=== PATIENT | male | born 2000 | race Two or more races ===

== ENCOUNTER 2023-11-11 17:51 | Emergency (ER) | payer MEDICAID, OTHER ==
[~2023-11-11] VITALS: Ht 170.2 cm; Wt 73.0 kg
[2023-11-11 17:59] VITALS: BP 130/85; PULSE 105; RESP 12; TEMP 98; O2SAT 98
== END 2023-11-11 18:29 | disposition home or self-care (01) ==
LOC: ER 17:51
DX: R10.9 Unspecified abdominal pain (principal)
CPT/HCPCS: 99281

== ENCOUNTER 2023-11-12 05:56 | Emergency (ER) | payer MEDICAID, OTHER ==
[~2023-11-12] VITALS: Ht 165.1 cm; Wt 83.0 kg
[2023-11-12 06:11] VITALS: O2SAT 99
[2023-11-12 06:23] LABS: CLARITY URINE CLEAR (CLEAR); COLOR URINE YELLOW (YELLOW); GLUCOSE URINE NEGATIVE (NEGATIVE); KETONES URINE NEGATIVE (NEGATIVE); LEUKOCYTE ESTERASE URINE NEGATIVE (NEGATIVE); NITRITE URINE NEGATIVE (NEGATIVE); OCCULT BLOOD URINE NEGATIVE (NEGATIVE); PH URINE 6.5 (4.5-8.0); PROTEIN URINE NEGATIVE (NEGATIVE); SPECIFIC GRAVITY URINE 1.007 (1.005-1.030); UROBILINOGEN URINE 0.2 E.U./dL (0.2-1.0)
[2023-11-12 08:29] VITALS: BP 133/69; PULSE 98; RESP 18; TEMP 98.9
== END 2023-11-12 08:36 | disposition home or self-care (01) ==
LOC: ER 06:03
DX: N48.29 Other inflammatory disorders of penis (principal)
CPT/HCPCS: 81003; 99283

== ENCOUNTER 2023-11-14 01:06 | Emergency (ER) | payer MEDICAID, OTHER ==
[2023-11-14] MEDS ORDERED: DOXY150T9 MT (01:43)
[2023-11-14] MEDS ORDERED: P20 MT (01:43)
[2023-11-14] MEDS ORDERED: DEXT15DR5 EACHEYE (01:43)
[2023-11-14] MEDS: CEFTRIAXONE SODIUM 500MG VIAL IM NR (01:54)
[2023-11-14] MEDS: DOXYCYCLINE HYCLATE 100MG CAPSULE PO NR (01:54)
[2023-11-14] MEDS: PREDNISONE 20MG TABLET PO NR (01:54)
[2023-11-14] MEDS ORDERED: LIDOCAINE HCL 1% 20ML VIAL (Pyxis) INJ INFIL ONE (02:00)
[2023-11-14 02:13] VITALS: BP 147/99; PULSE 88; RESP 18
== END 2023-11-14 02:45 | disposition home or self-care (01) ==
LOC: ER 01:06
DX: G51.0 Bell's palsy (principal); Z20.2 Contact with and (suspected) exposure to infections with a predominantly sexual mode of transmission
CPT/HCPCS: 82962; 96372; 99283; J0696; J7512

== ENCOUNTER 2023-12-12 11:39 | Emergency (ER) | payer OTHER, MEDICAID ==
[~2023-12-12] VITALS: Ht 175.3 cm; Wt 91.0 kg
[~2023-12-12 11:39] MED LIST: DEXT15DR5 EACHEYE; DOXY150T9 MT; P20 MT
[2023-12-12 13:08] LABS: BASOPHILS % 0.8 % (0.0-2.0); EOSINOPHILS % 2.5 % (0.0-5.0); HEMATOCRIT. 42.5 % (42.0-52.0); HEMOGLOBIN. 14.2 g/dL (14.0-18.0); LYMPHOCYTES % 39.6 % (20.0-50.0); MEAN CORPUSCULAR HGB CONC 33.5 g/dL (31.0-37.0); MEAN CORPUSCULAR VOLUME 83.4 fL (80.0-94.0); MEAN PLATELET VOLUME 9.7 fl (7.4-10.4); MONOCYTES % 6.9 % (2.0-8.0); NEUTROPHILS % 50.2 % (40.0-76.0); PLATELET 202 x1000/uL (130-400); RED BLOOD CELL COUNT 5.09 mill/uL (4.7-6.1); RED CELL DISTRIBUTION WIDTH 12.6 % (11.6-14.6); WHITE BLOOD COUNT 5.5 x1000/uL (4.5-11.0)
[2023-12-12 13:25] LABS: CLARITY URINE CLEAR (CLEAR); COLOR URINE YELLOW (YELLOW); GLUCOSE URINE NEGATIVE (NEGATIVE); KETONES URINE NEGATIVE (NEGATIVE); LEUKOCYTE ESTERASE URINE NEGATIVE (NEGATIVE); NITRITE URINE NEGATIVE (NEGATIVE); OCCULT BLOOD URINE NEGATIVE (NEGATIVE); PH URINE 6.5 (4.5-8.0); PROTEIN URINE NEGATIVE (NEGATIVE); SPECIFIC GRAVITY URINE 1.006 (1.005-1.030); UROBILINOGEN URINE 0.2 E.U./dL (0.2-1.0)
[2023-12-12 13:26] LABS: ACETAMINOPHEN < 2 ug/mL (10-30); ALANINE AMINOTRANSFERASE 42 IU/L (10-49); ALBUMIN 4.8 g/dL (3.2-4.8); ASPARTATE AMINOTRANSFERASE 23 IU/L (<34); BILIRUBIN TOTAL 0.3 mg/dL (0.1-1.0); CALCIUM 9.4 mg/dL (8.7-10.4); CARBON DIOXIDE 26 mEq/L (21-32); CHLORIDE 104 mEq/L (98-107); CREATININE 0.9 mg/dL (0.6-1.3); GLUCOSE 91 mg/dL (70-105); POTASSIUM 4.3 mEq/L (3.5-5.1); PROTEIN TOTAL 7.9 g/dL (6.0-8.3); SODIUM 138 mEq/L (136-145); UREA NITROGEN BLOOD 11 mg/dL (9-23)
[2023-12-12 13:34] LABS: ETHANOL BLOOD < 10 mg/dL (<10)
[2023-12-12 13:51] LABS: *AMPHETAMINES SCREEN URINE NEGATIVE (NEGATIVE); *BARBITURATES SCREEN URINE NEGATIVE (NEGATIVE); *BENZODIAZEPINES SCREEN URINE NEGATIVE (NEGATIVE); *COCAINE SCREEN URINE NEGATIVE (NEGATIVE); CANNABINOID URINE SCREEN NEGATIVE (NEGATIVE); ECSTASY MDMA SCREEN URINE NEGATIVE (NEGATIVE); METHADONE URINE SCREEN Neg (NEGATIVE); OPIATES URINE SCREEN NEGATIVE (NEGATIVE); PHENCYCLIDINE URINE SCREEN NEGATIVE (NEGATIVE)
[2023-12-12] MEDS: MAGNESIUM/ALUMINUM HYDROXIDE/SIMETHICONE 30ML UDC PO ONE (16:30)
[2023-12-12] MEDS: FAMOTIDINE 20MG TABLET PO ONE (16:30)
[2023-12-12] MEDS: LORAZEPAM 1MG TABLET PO ONE (17:30)
[2023-12-12 18:30] VITALS: O2SAT 100
[2023-12-12] MEDS: MIDAZOLAM HCL 2 MG/2 ML VIAL IM NR (18:30)
[2023-12-13 12:40] VITALS: BP 105/62; PULSE 85; RESP 16; TEMP 98.5
== END 2023-12-13 12:40 | disposition home or self-care (01) ==
LOC: ER 11:39
DX: F31.9 Bipolar disorder, unspecified (principal); Z76.0 Encounter for issue of repeat prescription; Z20.822 Contact with and (suspected) exposure to COVID-19
CPT/HCPCS: 36415; 80053; 80305; 80307; 80320; 80329; 81003; 85025; 87426; 99285; G0480

== ENCOUNTER 2024-11-08 21:40 | Emergency (ER) | payer OTHER, BC ==
[~2024-11-08] VITALS: Ht 172.7 cm; Wt 80.0 kg
[2024-11-08 21:44] VITALS: O2SAT 100
[2024-11-08] MEDS: SODIUM CHLORIDE 0.9% 1,000 ML IV ONE (22:27)
[2024-11-08] MEDS: ZIPRASIDONE MESYLATE 20MG/VIAL IM ONE (23:01)
[2024-11-08] MEDS: LORAZEPAM 1MG TABLET PO ONE (23:02)
[2024-11-08 23:24] LABS: BASOPHILS % 0.5 % (0.0-2.0); EOSINOPHILS % 0.6 % (0.0-5.0); HEMATOCRIT. 43.6 % (42.0-52.0); HEMOGLOBIN. 14.4 g/dL (14.0-18.0); LYMPHOCYTES % 17.8 % (20.0-50.0); MEAN CORPUSCULAR HEMOGLOBIN 28.1 pg (28.0-32.0); MEAN CORPUSCULAR HGB CONC 33.1 g/dL (31.0-37.0); MEAN PLATELET VOLUME 10.2 fl (7.4-10.4); MONOCYTES % 9.8 % (2.0-8.0); NEUTROPHILS % 71.3 % (40.0-76.0); PLATELET 158 x1000/uL (130-400); RED BLOOD CELL COUNT 5.13 mill/uL (4.7-6.1); WHITE BLOOD COUNT 5.7 x1000/uL (4.5-11.0)
[2024-11-08 23:37] LABS: CHLORIDE 104 mEq/L (98-107); POTASSIUM 3.4 mEq/L (3.5-5.1); SODIUM 140 mEq/L (136-145)
[2024-11-08 23:38] LABS: CALCIUM 9.6 mg/dL (8.7-10.4); CARBON DIOXIDE 27 mEq/L (21-32)
[2024-11-08 23:42] LABS: IRON 28 ug/dL (65-175)
[2024-11-08 23:43] LABS: CREATININE 1.1 mg/dL (0.6-1.3); GLUCOSE 117 mg/dL (70-105); UREA NITROGEN BLOOD 11 mg/dL (9-23)
[2024-11-08 23:45] LABS: ALANINE AMINOTRANSFERASE 40 IU/L (10-49); ALBUMIN 4.5 g/dL (3.2-4.8); ASPARTATE AMINOTRANSFERASE 18 IU/L (<34); BILIRUBIN TOTAL 0.7 mg/dL (0.1-1.0); PROTEIN TOTAL 7.4 g/dL (6.0-8.3); TOTAL IRON BINDING CAPACITY 115 ug/dl (250-425)
[2024-11-09 00:08] LABS: ETHANOL BLOOD < 10 mg/dL (<10)
[2024-11-09 00:35] VITALS: BP 113/84; PULSE 90; RESP 16; TEMP 37; O2SAT 98
== END 2024-11-09 04:38 | disposition left against medical advice (07) ==
LOC: ER 21:40
DX: F31.9 Bipolar disorder, unspecified (principal); Z91.148 Patient's other noncompliance with medication regimen for other reason
CPT/HCPCS: 80053; 80320; 83540; 83550; 85025; 36415; 71045; 96360; 96372; 99291; 86850; 86900; 86901; J3486; J7030; G0480

== ENCOUNTER 2025-09-16 19:26 | Emergency (ER) | payer OTHER, BC ==
[~2025-09-16] VITALS: Ht 165.1 cm; Wt 85.0 kg
[2025-09-16 19:35] VITALS: O2SAT 99
[2025-09-16] MEDS: IBUPROFEN 600MG TABLET PO ONE (20:11)
[2025-09-16] MEDS ORDERED: IBUP-1455 MT (20:30)
[2025-09-16] MEDS ORDERED: METH-653 MT (20:30)
[2025-09-16 20:53] VITALS: BP 133/82; PULSE 92; RESP 18; TEMP 37.1; O2SAT 99
== END 2025-09-16 20:53 | disposition home or self-care (01) ==
LOC: ER 19:26
DX: S22.32XA Fracture of one rib, left side, initial encounter for closed fracture (principal); F31.9 Bipolar disorder, unspecified; V89.0XXA Person injured in unspecified motor-vehicle accident, nontraffic, initial encounter; Y93.89 Activity, other specified; Y92.89 Other specified places as the place of occurrence of the external cause; Y99.9 Unspecified external cause status
CPT/HCPCS: 71101; 99283